=== PATIENT | female | born 1965 | race Hispanic/Latino ===

== ENCOUNTER 2019-03-19 20:52 | Emergency (ER) | payer SELFPAY ==
[2019-03-19 21:47] LABS: Absolute Lymphocytes (CBC) 2.3 K/uL (0.7-4.9); Basophils % 1.1 % (0-1.3); Eosinophils % 2.3 % (0-4.4); Hematocrit 39.5 % (36.0-45.0); Lymphocytes % 25.1 % (15.3-44.8); MPV 8.6 fL (7.6-11.3); Monocytes % 7.4 % (3.3-12.3); RBC Red Blood Cell Count 4.34 M/uL (3.86-4.86)
[2019-03-19 21:52] LABS: Protime INR 1.04
[2019-03-19] MEDS ORDERED: LEVALBUTEROL 1.25 MG/3 ML NEB ONE (21:54)
[2019-03-19] MEDS ORDERED: METOPROLOL TAR 50 MG TAB ONE (21:54)
[2019-03-19] MEDS ORDERED: ASPIRIN EC 81 MG TAB PO ONE (21:54)
[2019-03-19] MEDS ORDERED: IPRATROPIUM BROM 0.5MG/2.5ML ONE (21:54)
[2019-03-19 22:13] LABS: Urine Glucose NEGATIVE (NEG); Urine Specific Gravity 1.025 (1.005-1.030)
[2019-03-19 22:14] LABS: Urine Blood NEGATIVE (NEG); Urine Protein 1+ (NEG)
[2019-03-19 22:15] LABS: ALT/SGPT 24 U/L (12-78); AST/SGOT 21 U/L (15-37); Albumin 3.4 g/dL (3.4-5.0); Alkaline Phosphatase 256 U/L (45-117); BUN Blood Urea Nitrogen 14 mg/dL (7-18); Bicarbonate 29 mmol/L (21-32); Bilirubin Direct 0.1 mg/dL (0-0.2); Bilirubin Total 0.3 mg/dL (0.2-1.0); Glucose Level 94 mg/dL (74-106); NT PRO-BNP 85 pg/mL (<125); Potassium 3.5 mmol/L (3.5-5.1); Protein, Total 8.6 g/dL (6.4-8.2); Sodium Level 143 mmol/L (136-145); Thyroid Stimulating Hormone 0.991 uIU/mL (0.360-3.740); Troponin (Emerg Dept Use Only) < 0.02 ng/mL (0.0-0.045)
--- NOTE | 2019-03-19 22:24 | RAD REPORT ---
EXAM DESCRIPTION: RAD - Chest Single View - 03/19/2019 9:29 pm CLINICAL HISTORY: Cough;Palpitations Chest pain. COMPARISON: <Comparisons> FINDINGS: Portable technique limits examination quality. The lungs are grossly clear. The heart is normal in size. No displaced fractures. IMPRESSION: No acute intrathoracic process suspected.
--- NOTE | 2019-03-19 23:45 | ER ---
Nurse's Notes [facility] Name: Marla Quijano Age: 54 yrs Sex: Female : 1965 Arrival Date: 03/19/2019 Time: 20:59 Bed 17 Private MD: Diagnosis: Palpitations Presentation: 03/19 21:05 Presenting complaint: Child states: States having patient outside at [facility] today, lp1 thinks she may have gotten overheated; "Began to complain of shortness of breath and her heartbeat was irregular"; Patient states episode lasted for about 20 minutes; Resolved at this time; No complaints during triage. Transition of care: patient was not received from another setting of care. Onset of symptoms was March 19, 2019 at 20:30. Risk Assessment: Do you want to hurt yourself or someone else? Patient reports no desire to harm self or others. Initial Sepsis Screen: Does the patient meet any 2 criteria? No. Patient's initial sepsis screen is negative. Does the patient have a suspected source of infection? No. Patient's initial sepsis screen is negative. Care prior to arrival: None. 21:05 Method Of Arrival: Wheelchair lp1 21:05 Acuity: AMANDA 3 lp1 Triage Assessment: 21:23 General: Appears in no apparent distress. Behavior is calm, cooperative. Pain: Denies ak1 pain. EENT: No signs and/or symptoms were reported regarding the EENT system. Neuro: No deficits noted. Cardiovascular: Reports chest pain, palpitations, since earlier today. Respiratory: Reports shortness of breath at rest on exertion since being outside in heat today at [facility]. GI: No signs and/or symptoms were reported involving the gastrointestinal system. : No signs and/or symptoms were reported regarding the genitourinary system. Derm: No signs and/or symptoms reported regarding the dermatologic system. Musculoskeletal: No signs and/or symptoms reported regarding the musculoskeletal system. DIETETIC TECH: 21:06 LMP N/A - Post-menopause lp1 Historical: - Allergies: 21:07 No Known Allergies; lp1 - Home Meds: 21:07 Unable to obtain [Active]; lp1 - PMHx: 21:07 Seizures; CVA; Hyperlipidemia; lp1 - PSHx: 21:07 ; lp1 - Immunization history:: Adult Immunizations up to date. - Social history:: Smoking status: Patient/guardian denies using tobacco. - Ebola Screening: : No symptoms or risks identified at this time. Screenin:24 Abuse screen: Denies threats or abuse. Denies injuries from another. Nutritional ak1 screening: No deficits noted. Tuberculosis screening: No symptoms or risk factors identified. Fall Risk Gait- Weak (10 pts.). Assessment: 22:06 General: Appears in no apparent distress. Behavior is calm, cooperative. Pain: Denies ak1 pain. Neuro: No deficits noted. Cardiovascular: No deficits noted. Respiratory: Reports cough that is non-productive, Airway is patent. GI: No signs and/or symptoms were reported involving the gastrointestinal system. : No signs and/or symptoms were reported regarding the genitourinary system. EENT: No signs and/or symptoms were reported regarding the EENT system. Derm: No signs and/or symptoms reported regarding the dermatologic system. Musculoskeletal: No signs and/or symptoms reported regarding the musculoskeletal system. 23:26 Reassessment: Patient appears in no apparent distress at this time. No changes from ak1 previously documented assessment. Patient states feeling better. Patient states symptoms have improved. assisted pt to wheelchair then to the restroom. pt stated "yes" when asked if she was feeling better.. 23:54 Reassessment: Patient appears in no apparent distress at this time. No changes from ak1 previously documented assessment. Patient and/or family updated on plan of care and expected duration. Pain level reassessed. Patient states feeling better. Patient states symptoms have improved. pt ambulated to wheelchair for discharge. pt left with son. . Vital Signs: 21:06 BP 150 / 88; Pulse 106; Resp 18; Pulse Ox 95% on R/A; Weight 117.93 kg; Pain 0/10; lp1 22:07 BP 146 / 105; Pulse 102; Resp 20; Temp 98.3; Pulse Ox 100% on Nebulizer Mask; ak1 23:18 BP 136 / 91; Pulse 66; Resp 20; Temp 98.4; Pulse Ox 100% on R/A; ak1 ED Course: 20:59 Patient arrived in ED. es 21:06 Triage completed. lp1 21:06 Arm band placed on left wrist. lp1 21:09 Jarrod Nicolas MD is Attending Physician. [facility] 21:23 Berna Schuler, RN is Primary Nurse. ak1 21:25 Patient has correct armband on for positive identification. Bed in low position. Call ak1 light in reach. Side rails up X 1. Adult w/ patient. monitoring engineer on. Pulse ox on. NIBP on. 21:29 XRAY Chest (1 view) In Process Unspecified. EDMS 21:33 Initial lab(s) drawn, by me, sent to lab. EKG done, by ED staff, reviewed by Jarrod Nicolas MD X-ray(s) taken. Inserted saline lock: 20 gauge in right antecubital area, using aseptic technique. Blood collected. 22:02 Flaco Bolton PA is PHCP. félix 22:02 Notified ED physician of a critical lab result(s). d- dimer [id number]. ak1 22:31 US Extremity Venous W Compression Alvino In Process Unspecified. EDVA 23:45 Vito Denny MD is Referral Physician. [facility] 23:48 No provider procedures requiring assistance completed. IV discontinued, intact, ak1 bleeding controlled, No redness/swelling at site. Pressure dressing applied. Administered Medications: 21:53 Drug: Aspirin 81 mg Route: PO; ak1 22:05 Follow up: Response: No adverse reaction ak1 21:53 Drug: Lopressor (metoprolol TARTRATE) 50 mg Route: PO; ak1 22:05 Follow up: Response: No adverse reaction ak1 21:53 Drug: Xopenex 1.25 mg Route: Inhalation; ak1 21:53 Drug: AtroVENT Aerosol 0.5 mg Route: Inhalation; ak1 Outcome: 23:45 Discharge ordered by . [facility] 23:49 Discharged to home via wheelchair, with family. ak1 23:49 Condition: good 23:49 Discharge instructions given to patient, family, Instructed on discharge instructions, follow up and referral plans. no drinking with medication, no driving heavy equipment, medication usage, Demonstrated understanding of instructions, follow-up care, medications, Prescriptions given X 2. 23:54 Patient left the ED. ak1 Signatures: Dispatcher [employer] Jarrod Brown MD MD cha Mickail, Joel, PA PA jmm Salyer, Edna es Pena, Laura RN RN lp1 Krenek, Berna, RN RN ak1
--- NOTE | 2019-03-19 23:46 | EDPHYS ---
Physician Documentation [facility] Name: Marla Quijano Age: 54 yrs Sex: Female : 1965 Arrival Date: 03/19/2019 Time: 20:59 Bed 17 Private MD: ED Physician Jarrod Nicolas HPI: 03/19 21:11 This 54 yrs old Female presents to ER via Wheelchair with complaints of zachary Palpitations. 21:11 The patient presents with a history of heart racing. Context: The symptoms occur. zachary MAILING JOGGER: 21:06 LMP N/A - Post-menopause lp1 Historical: - Allergies: 21:07 No Known Allergies; lp1 - Home Meds: 21:07 Unable to obtain [Active]; lp1 - PMHx: 21:07 Seizures; CVA; Hyperlipidemia; lp1 - PSHx: 21:07 ; lp1 - Immunization history:: Adult Immunizations up to date. - Social history:: Smoking status: Patient/guardian denies using tobacco. - Ebola Screening: : No symptoms or risks identified at this time. ROS: 21:12 Constitutional: Negative for fever, chills, and weight loss, Eyes: Negative for injury, zachary pain, redness, and discharge, ENT: Negative for injury, pain, and discharge, Neck: Negative for injury, pain, and swelling, Respiratory: Negative for shortness of breath, cough, wheezing, and pleuritic chest pain, Abdomen/GI: Negative for abdominal pain, nausea, vomiting, diarrhea, and constipation, Back: Negative for injury and pain, : Negative for injury, bleeding, discharge, and swelling, MS/Extremity: Negative for injury and deformity, Skin: Negative for injury, rash, and discoloration, Neuro: Negative for headache, weakness, numbness, tingling, and seizure, Psych: Negative for depression, anxiety, suicide ideation, homicidal ideation, and hallucinations, Allergy/Immunology: Negative for hives, rash, and allergies, Endocrine: Negative for neck swelling, polydipsia, polyuria, polyphagia, and marked weight changes, Hematologic/Lymphatic: Negative for swollen nodes, abnormal bleeding, and unusual bruising. 21:12 Cardiovascular: Positive for palpitations. Exam: 21:12 Constitutional: This is a well developed, well nourished patient who is awake, alert, zachary and in no acute distress. Head/Face: Normocephalic, atraumatic. Eyes: Pupils equal round and reactive to light, extra-ocular motions intact. Lids and lashes normal. Conjunctiva and sclera are non-icteric and not injected. Cornea within normal limits. Periorbital areas with no swelling, redness, or edema. ENT: Nares patent. No nasal discharge, no septal abnormalities noted. Tympanic membranes are normal and external auditory canals are clear. Oropharynx with no redness, swelling, or masses, exudates, or evidence of obstruction, uvula midline. Mucous membranes moist. Neck: Trachea midline, no thyromegaly or masses palpated, and no cervical lymphadenopathy. Supple, full range of motion without nuchal rigidity, or vertebral point tenderness. No Meningismus. Chest/axilla: Normal chest wall appearance and motion. Nontender with no deformity. No lesions are appreciated. Respiratory: Lungs have equal breath sounds bilaterally, clear to auscultation and percussion. No rales, rhonchi or wheezes noted. No increased work of breathing, no retractions or nasal flaring. Abdomen/GI: Soft, non-tender, with normal bowel sounds. No distension or tympany. No guarding or rebound. No evidence of tenderness throughout. Back: No spinal tenderness. No costovertebral tenderness. Full range of motion. Skin: Warm, dry with normal turgor. Normal color with no rashes, no lesions, and no evidence of cellulitis. MS/ Extremity: Pulses equal, no cyanosis. Neurovascular intact. Full, normal range of motion. Neuro: Awake and alert, GCS 15, oriented to person, place, time, and situation. Cranial nerves II-XII grossly intact. Motor strength 5/5 in all extremities. Sensory grossly intact. Cerebellar exam normal. Normal gait. Psych: Awake, alert, with orientation to person, place and time. Behavior, mood, and affect are within normal limits. 21:12 Cardiovascular: Rate: tachycardic, Rhythm: regular, Pulses: Pulses are 4+ in bilateral radial, brachial, femoral, popliteal, posterior tibial and and dorsalis pedis arteries.. Heart sounds: normal, Edema: is not appreciated, JVD: is not appreciated. 22:16 Musculoskeletal/extremity: DVT Exam: No signs of deep vein thrombosis. no pain, no zachary swelling, no tenderness, negative Homans' sign noted on exam, no appreciated bluish discoloration, no erythema, no increased warmth. Vital Signs: 21:06 BP 150 / 88; Pulse 106; Resp 18; Pulse Ox 95% on R/A; Weight 117.93 kg; Pain 0/10; lp1 22:07 BP 146 / 105; Pulse 102; Resp 20; Temp 98.3; Pulse Ox 100% on Nebulizer Mask; ak1 23:18 BP 136 / 91; Pulse 66; Resp 20; Temp 98.4; Pulse Ox 100% on R/A; ak1 MDM: 21:10 Patient medically screened. [facility] 21:14 Data reviewed: vital signs, nurses notes, lab test result(s), EKG, radiologic studies, [facility] plain films. 03/19 21:11 Order name: Basic Metabolic Panel; Complete Time: 22:16 [facility] 03/19 21:11 Order name: CBC with Diff; Complete Time: 22:08 [facility] 03/19 21:11 Order name: LFT's; Complete Time: 22:16 [facility] 03/19 21:11 Order name: Magnesium; Complete Time: 22:16 [facility] 03/19 21:11 Order name: NT PRO-BNP; Complete Time: 22:16 [facility] 03/19 21:11 Order name: Troponin (emerg Dept Use Only); Complete Time: 22:16 [facility] 03/19 21:11 Order name: XRAY Chest (1 view); Complete Time: 22:35 [facility] 03/19 21:11 Order name: Urine Culture [facility] 03/19 21:11 Order name: TSH; Complete Time: 22:16 [facility] 03/19 21:21 Order name: D-Dimer; Complete Time: 22:08 [facility] 03/19 21:48 Order name: Protime (+INR); Complete Time: 22:08 EDMS 03/19 21:59 Order name: US Extremity Venous W Compression Alvino [facility] 03/19 22:06 Order name: Urine Dipstick--Ancillary (enter results); Complete Time: 22:15 mw2 03/19 21:11 Order name: EKG; Complete Time: 21:14 [facility] 03/19 21:11 Order name: Cardiac monitoring; Complete Time: 22:08 [facility] 03/19 21:11 Order name: EKG - Nurse/Tech; Complete Time: 22:08 [facility] 03/19 21:11 Order name: IV Saline Lock; Complete Time: 21:45 [facility] 03/19 21:11 Order name: Labs collected and sent; Complete Time: 21:45 [facility] 03/19 21:11 Order name: O2 Per Protocol; Complete Time: 21:46 [facility] 03/19 21:11 Order name: O2 Sat Monitoring; Complete Time: 21:46 [facility] 03/19 21:11 Order name: Urine Dipstick-Ancillary (obtain specimen); Complete Time: 21:53 [facility] 03/19 21:59 Order name: CT Chest For PE Angio zachary Administered Medications: 21:53 Drug: Aspirin 81 mg Route: PO; ak1 22:05 Follow up: Response: No adverse reaction ak1 21:53 Drug: Lopressor (metoprolol TARTRATE) 50 mg Route: PO; ak1 22:05 Follow up: Response: No adverse reaction ak1 21:53 Drug: Xopenex 1.25 mg Route: Inhalation; ak1 21:53 Drug: AtroVENT Aerosol 0.5 mg Route: Inhalation; ak1 Disposition: 03/19/19 23:45 Discharged to Home. Impression: Palpitations. - Condition is Stable. - Discharge Instructions: Obesity, Adult, Palpitations, Aspirin and Your Heart, Palpitations, [id number], Obesity, Adult, [id number]. - Prescriptions for Xopenex HFA 45 mcg/actuation Inhalation HFA aerosol inhaler - inhale 2 puff by INHALATION route every 4 hours; 1 unit. Toprol XL 25 mg Oral Tablet - take 1 tablet by ORAL route once daily; 20 tablet. - Medication Reconciliation Form, Thank You Letter, Antibiotic Education, Prescription Opioid Use form. - Follow up: Private Physician; When: 2 - 3 days; Reason: Recheck today's complaints, Continuance of care, Re-evaluation by your physician. Follow up: Vito Denny; When: 2 - 3 days; Reason: Recheck today's complaints, Re-evaluation by your physician. - Problem is new. - Symptoms have improved. Signatures: Dispatcher [employer] EDMS Jarrod Nicolas MD MD cha Mickail, Joel, PA PA jmm Pena, Laura, RN RN lp1 Berna Schuler RN RN ak1 Corrections: (The following items were deleted from the chart) 21:47 21:14 PROTIME (+INR)+[id number].BRZ ordered. EDMS EDMS 23:54 23:45 03/19/2019 23:45 Discharged to Home. Impression: Palpitations. Condition is ak1 Stable. Discharge Instructions: Palpitations, Aspirin and Your Heart, Palpitations, [id number], Obesity, Adult, Obesity, Adult, [id number]. Prescriptions for Toprol XL 25 mg Oral Tablet - take 1 tablet by ORAL route once daily; 20 tablet, Xopenex HFA 45 mcg/actuation Inhalation HFA aerosol inhaler - inhale 2 puff by INHALATION route every 4-6 hours; 1 Cartridge. and Forms are Medication Reconciliation Form, Thank You Letter, Antibiotic Education, Prescription Opioid Use. Follow up: Private Physician; When: 2 - 3 days; Reason: Recheck today's complaints, Continuance of care, Re-evaluation by your physician. Follow up: Vito Denny; When: 2 - 3 days; Reason: Recheck today's complaints, Re-evaluation by your physician. Problem is new. Symptoms have improved. félix
--- NOTE | 2019-03-20 07:54 | EKG ---
Test Date: 2019-03-19 Test Time: 21:55:17 Brick Unloader Tender: ALAYNA MEASUREMENT RESULTS: Intervals: Rate: 103 LA: 144 QRSD: 116 QT: 410 QTc: 537 Bend: P: 44 LA: 144 QRS: 27 T: 71 INTERPRETIVE STATEMENTS: Sinus tachycardia Incomplete right bundle branch block ST & T wave abnormality, consider anterior ischemia Prolonged QT Abnormal ECG No previous ECG available for comparison Electronically Signed On 03-20-19 07:53:50 CDT by Matt Vilchis
--- NOTE | 2019-03-20 08:06 | RAD REPORT ---
EXAM DESCRIPTION: US - Extrem Venous W Compress Alvino - 03/19/2019 11:04 pm CLINICAL HISTORY: Pain;Swelling Bilateral leg edema and swelling. COMPARISON: <Comparisons> TECHNIQUE: Real-time sonographic interrogation of the left and right lower extremity deep venous sys tems was performed. FINDINGS: Normal compressibility, flow augmentation, phasic flow and spontaneous flow is identified in both the left and right lower extremity deep venous systems. IMPRESSION: No sonographic evidence of left or right lower extremity deep venous thrombosis.
--- NOTE | 2019-03-20 10:06 | RAD REPORT ---
EXAM DESCRIPTION: Angiography Chest With Intravenous Contrast CLINICAL HISTORY: The patient is 54 years old and is Female; DYSPNEA TECHNIQUE: Axial computed tomographic angiography images of the chest with intravenous contrast usin g pulmonary embolism protocol. Sagittal and coronal reformatted images were created and reviewed. This CT exam was performed using one or more of the following dose reduction techniques: automated exposure control, adjustment of the mA and/or kV according to patient size, and/or use of iterative reconstruction technique. MIP reconstructed images were created and reviewed. COMPARISON: No relevant prior studies available. FINDINGS: ARTIFACTS: The exam is suboptimal secondary to motion artifact. PULMONARY ARTERIES: There are no obvious filling defects identified within the pulmonary arterie s to suggest pulmonary embolism. AORTA: No acute findings. No thoracic aortic aneurysm. LUNGS: Unremarkable. No mass. No consolidation. PLEURAL SPACE: Unremarkable. No significant effusion. No pneumothorax. HEART: The heart is enlarged. There is no pericardial effusion. No evidence of RV dysfunction. BONES/JOINTS: No acute fracture. No dislocation. SOFT TISSUES: Unremarkable. LYMPH NODES: Unremarkable. No enlarged lymph nodes. GALLBLADDER AND BILE DUCTS: Surgical clips are present in the right upper quadrant, consistent w ith previous cholecystectomy. IMPRESSION: No evidence of pulmonary embolism. Electronically signed by: Luci Anders MD 03/19/2019 11:01 PM CDT Due to temporary technical issues with the PACS/Fluency reporting system, reports are being signed by the in house radiologist as a courtesy to ensure prompt reporting. The interpreting radiologist is f ully responsible for the content of the report.
== END 2019-03-19 23:54 | disposition home or self-care (01) ==
LOC: ER 20:52
DX: R00.2 Palpitations (principal); E78.5 Hyperlipidemia, unspecified; Z86.73 Personal history of transient ischemic attack (TIA), and cerebral infarction without residual deficits
CPT/HCPCS: 36415; 71045; 71275; 80048; 80076; 81003; 83735; 83880; 84443; 84484; 85025; 85379; 85610; 87086; 87088; 93005; 93970; 99285; Q9967